=== PATIENT | female | born 1955 | race Caucasian/White ===

== ENCOUNTER 2018-06-06 07:00 | Day surgery (SDC) | payer OTHER ==
[~2018-06-06] VITALS: Ht 152.4 cm; Wt 52.6 kg
[~2018-06-06 07:00] MED LIST: DEPAKOTE ER250 MG PO; LEVO-T25 MCG PO
[2018-06-07] MEDS ORDERED: ULTRACET PO (08:32)
[2018-06-07] MEDS ORDERED: INTESTINEX680 M1 PO (08:32)
[2018-06-07] MEDS ORDERED: RECTICARE30 GM TOP (08:33)
== END 2018-06-07 09:00 | disposition home or self-care (01) ==
LOC: CIR.AMB 07:00 → O/R 08:00 → SURH 08:00 → O/R 08:02 → SURH 08:02 → EDSTATUS 09:15 → SURH 09:15 → O/R 17:38 → SURH 20:00 → CIR.AMB 06-07 09:00 → SURH 06-07 13:52
DX: D12.8 Benign neoplasm of rectum (principal)

== ENCOUNTER 2019-02-06 07:55 | Day surgery (SDC) | payer OTHER ==
[~2019-02-06 07:55] MED LIST changes: +INTESTINEX680 M1 PO; +RECTICARE30 GM TOP; +ULTRACET PO
[2019-02-06] MEDS ORDERED: ULTRACET PO (10:32)
[2019-02-06] MEDS ORDERED: BACTRIM DS TAB1 EACH PO (10:34)
== END 2019-02-06 13:10 | disposition home or self-care (01) ==
LOC: CIR.AMB 07:55
DX: R15.9 Full incontinence of feces (principal)
CPT/HCPCS: 64581; C1778

== ENCOUNTER 2019-02-27 05:34 | Day surgery (SDC) | payer OTHER ==
[~2019-02-27 05:34] MED LIST changes: +BACTRIM DS TAB1 EACH PO
[2019-02-27] MEDS ORDERED: ULTRACET PO (11:23)
== END 2019-02-27 12:45 | disposition home or self-care (01) ==
LOC: CIR.AMB 05:34
DX: R15.9 Full incontinence of feces (principal)
CPT/HCPCS: 64590; C1767

== ENCOUNTER → 2019-09-29 | Outpatient (CLI) | payer OTHER | END | disposition home or self-care (01) | LOC: NUCLEAR 09:00 | DX: I25.10 Atherosclerotic heart disease of native coronary artery without angina pectoris (principal) ==

== ENCOUNTER 2020-06-17 08:03 | Outpatient (CLI) | payer OTHER | END 2020-06-17 08:07 | disposition home or self-care (01) | LOC: RX STUDY 08:03 | DX: K61.1 Rectal abscess (principal); K61.4 Intrasphincteric abscess ==

== ENCOUNTER 2020-06-21 07:47 | Outpatient (CLI) | payer OTHER | END 2020-06-21 07:52 | disposition home or self-care (01) | LOC: RX STUDY 07:47 | DX: K61.1 Rectal abscess (principal); K61.4 Intrasphincteric abscess ==